=== PATIENT | female | born 1945 | race Two or more races ===

== ENCOUNTER 2017-11-11 05:03 | Inpatient (IN) | payer MEDICARE, MEDICAID ==
[~2017-11-11] VITALS: Ht 160 cm; Wt 95.3 kg
--- NOTE | 2017-11-11 05:00 | NUR ---
ms/rn notes receive patient direct admit patient of Dr. taylor for procedure for total left knee arthroplasty, with chief complain of chronic pain on bilateral leg, patient alert, oriented x3, able to verbalize needs, ambulatory, complain of pain, belongings received by , consent signed, and iv inserted on left hand gauge 20,, vital signs checked, endorse to leticia and last picker in bed for 7am surgery.
[2017-11-11] MEDS ORDERED: BACITRACIN 50000 UNITS/VIAL ONE (06:34)
[2017-11-11] MEDS ORDERED: KETOROLAC TROMETHAMINE INJ 30 MG/ML VIAL ONE (06:34)
[2017-11-11] MEDS ORDERED: BUPIVACAINE 0.5 % PF 150 MG/30 ML VIAL ONE (06:34)
[2017-11-11] MEDS ORDERED: ANESTHESIA TRAY IN PYXIS 1 EA TRAY MC ONE (06:34)
[2017-11-11] MEDS ORDERED: TRANEXAMIC ACID 3,000 MG in SODIUM CHLORIDE IRRIG SOLUTION 70 ML IR ONE (07:00)
[2017-11-11 07:01] LABS: BASOPHILS % (AUTO) 0.1 % (0.0-2.0); EOSINOPHILS # (AUTO) 0.1 /CMM (0.0-0.7); HEMATOCRIT 39 % (33-45); HEMOGLOBIN 12.9 g/dL (11.5-14.8); LYMPHOCYTES % (AUTO) 15.7 % (20.0-44.0); MEAN CORPUSCULAR HEMOGLOBIN 29 PG (26.0-33.0); MEAN CORPUSCULAR HGB CONC 34 g/dl (31.0-36.0); MEAN CORPUSCULAR VOLUME 87 fL (82-100); MONOCYTES # (AUTO) 0.7 /CMM (0.1-1.30); MONOCYTES % (AUTO) 5.7 % (2.0-12.0); NEUTROPHILS # (AUTO) 9.8 /CMM (1.8-8.9); NEUTROPHILS % (AUTO) 77.5 % (43.0-81.0); PLATELET COUNT (AUTO) 232 /CMM (150-450); RDW COEFFICIENT OF VARIATION 15.3 (11.5-15.0); RED BLOOD CELL COUNT(AUTO) 4.42 MIL/uL (4.0-5.2); WHITE BLOOD COUNT (AUTO) 12.7 K/uL (4.3-11.0)
[2017-11-11] MEDS ORDERED: KETAMINE HCL (500MG/10ML) 50 MG/ML VIAL ONE (07:08)
[2017-11-11] MEDS ORDERED: MIDAZOLAM HCL 2 MG/2ML VIAL ONE (07:08)
[2017-11-11] MEDS ORDERED: FENTANYL PF 100MCG/2ML AMPUL ONE (07:08)
--- NOTE | 2017-11-11 08:10 | NUR ---
RN NOTES PATIENT IN THE SURGERY AT THIS TIME.
[2017-11-11 09:07] VITALS: BP 132/72
--- NOTE | 2017-11-11 09:07 | NUR ---
RN NOTES RECEIVED PATIENT AT THIS TIME RETURNED FROM SURGERY LEFT TOTAL KNEE. GET REPORT FROM SURGERY NURSE PER MD ORDER CONTINUED MEDS, REGULAR DIET, FIRS DRESSING CHANGE ON THURSDAY BY NURSE, PT EVALUATION, HEMOGLOBIN, AND HEMATOCRIT ON 11/12/17, RESUME HOME MEDICATION, CONSULT FOR HOSPITALIZATION. ORDER TAKEN AND CARRIED OUT.PATIENT A/O X3/4, NO C/O PAIN AT THIS TIME, NO COMPLAINING OF SOB. V/S TAKEN BP-132/72, P-73, R-14, T-97.3, 02-95 ROOM AIR, PATIENT HAS A LEFT KNEE DRESSING, AND LONG BRACE ON, DVT PUMP ON BILATERAL LOWER EXTREMITIES, LUNGS ARE CLEAR DURING AUSCULTATION, HOB ELEVATED, NO ACUTE RESPIRATORY DISTRESS, RUSH CATHETER DRAIN LIGHT YELLOW OUTPUT, LEFT HAND IV ACCESS INTACT,CALL LIGHT WITHIN TO REACH, CONTINUED MONITORING.
[2017-11-11] MEDS ORDERED: ACETAMINOPHEN 325 MG TABLET PO PRN (10:30)
[2017-11-11] MEDS ORDERED: HYDROCODONE/APAP 5/325MG 1 EACH TABLET PO PRN ×2 (10:30)
[2017-11-11] MEDS ORDERED: BISACODYL SUPP (10 MG) 10 MG/SUPP.RECT SUPP.RECT RC PRN (10:30)
[2017-11-11] MEDS ORDERED: DOCUSATE SODIUM 250 MG CAPSULE PO PRN (10:30)
[2017-11-11] MEDS ORDERED: HYDROMORPHONE 1 MG/1 ML DISP.SYRIN IV PRN (10:30)
[2017-11-11] MEDS ORDERED: ZOLPIDEM TARTRATE 5 MG TABLET PO PRN (10:30)
[2017-11-11] MEDS ORDERED: SENNOSIDES 8.6 MG TABLET PO PRN (10:30)
--- NOTE | 2017-11-11 10:48 | NUR ---
RN NOTES ADMINISTERED DILAUDID 1MG/ML IV PUSH PER PATIENT REQUEST PAIN LEVEL IS 10/10 LEFT KNEE, CALL LIGHT WITHIN TO REACH, ALSO PATIENT C/O NAUSEA, HOB KEEP ELEVATED, CALL LIGHT WITHIN TO REACH, SAFETY PRECAUTION MAINTAINED ALL THE TIME.
[2017-11-11] MEDS: IV LR 1000 ML 1,000 ML IV PRN (10:59)
[2017-11-11] MEDS ORDERED: SENNOSIDES/DOCUSATE SODIUM 1 TAB TABLET PO SCH (12:30)
[2017-11-11] MEDS: POLYETHYLENE GLYCOL 3350 17 GM POWD.PACK PO SCH ×2 (12:30→22:00)
[2017-11-11] MEDS: HYDROMORPHONE HCL 2 MG TABLET PO SCH ×2 (12:30→17:19)
[2017-11-11] MEDS: ONDANSETRON HCL/PF 4 MG/2 ML VIAL IV PRN ×2 (13:04→19:19)
[2017-11-11] MEDS: HYDROMORPHONE 1 MG/1 ML DISP.SYRIN IV PRN ×2 (13:13→19:20)
[2017-11-11] MEDS ORDERED: OLME20TA21 PO (13:31)
[2017-11-11] MEDS ORDERED: OMEP20CA10 PO (13:31)
[2017-11-11] MEDS ORDERED: Statin PO (13:31)
[2017-11-11] MEDS ORDERED: GABA-534 PO (13:31)
[2017-11-11] MEDS ORDERED: NAPR500T6 PO (13:31)
--- NOTE | 2017-11-11 15:00 | NUR ---
RN NOTES PATIENT WITH THE PT, BACK TO THE BED AFTER AMBULATION, ON CPM, NO C/O PAIN AT THIS TIME, MEDICATION WERE ADMINISTERED FOR PAIN , AND NAUSEA EFFECTIVE, CALL LIGHT WITHIN TO REACH, CONTINUED MONITORING.
[2017-11-11 16:00] VITALS: BP 146/76
[2017-11-11] MEDS ORDERED: hydrALAZINE HCL 25 MG TABLET PO PRN (18:30)
--- NOTE | 2017-11-11 19:20 | NUR ---
RN NOTES ADMINISTERED ZOFRAN 4MF/ML IV PUSH FOR NAUSEA , AND DILAUDID 2 MG /ML IV PUSH PAIN 8/10 LFT KNEE. CALL LIGHT WITHIN TO REACH, FAMILY NEXT TOT THE BED. ENDORSED ONCOMING NURSE FOR KELLEN.
--- NOTE | 2017-11-11 19:35 | NUR ---
RN OPENING NOTES RECEIVED REPORT FROM DAYSHIFT RN. FOUND Pt AWAKE, RESTING IN BED, FAMILY VISITING AT BEDSIDE. NO S/S OF ACUTE DISTRESS OR SOB NOTED. Pt IS A/OX4, VERBAL, ABLE TO MAKE NEEDS KNOWN. IV ACCESS ON RHAND #22G, IVF LR @50ML/HR, INFUSING WELL. RUSH CATHETER IN PLACE. SAFETY MEASURES IN PLACE. BED LOW, LOCKED, HOB ELEVATED, SIDE RAILS UP, CALL LIGHT AND BED SIDE TABLE WITHIN REACH. WILL CONTINUE TO MONITOR Pt THROUGHOUT THE NIGHT FOR SAFETY.
[2017-11-11 20:00] VITALS: BP_SYST 124; BP_SYST 94; BP_DIAS 59; BP_DIAS 70
[2017-11-11] MEDS ORDERED: SULF1TAB48 PO (20:10)
[2017-11-11] MEDS ORDERED: PROMETHAZINE HCL 50 MG/ML AMPUL IM ONE (21:42)
[2017-11-11] MEDS ORDERED: SCOPOLAMINE HBR 1 EA PATCH.TD72 TD SCH (22:00)
[2017-11-11] MEDS ORDERED: oxyCODONE IR immediate release 5 MG PO PRN (22:00)
[2017-11-11] MEDS ORDERED: PROMETHAZINE HCL 50 MG/ML AMPUL IM PRN (22:00)
[2017-11-11] MEDS: PANTOPRAZOLE 40 MG TABLET.DR PO SCH (23:42)
[2017-11-11] MEDS: HYDROMORPHONE 1 MG/1 ML DISP.SYRIN SQ PRN (23:43)
[2017-11-12] MEDS: HYDROMORPHONE 1 MG/1 ML DISP.SYRIN SQ PRN ×5 (03:57→20:07)
--- NOTE | 2017-11-12 06:42 | NUR ---
RN CLOSING NOTES NO SIGNIFICANT CHANGES IN Pt's CONDITION DURING THE SHIFT. Pt REMAINS STABLE AT THIS TIME. NO S/S OF ACUTE DISTRESS OR SOB NOTED DURING THE NIGHT. ALL NEEDS MET AND ATTENDED TO. SAFETY MEASURES IN PLACE. WILL ENDORSE TO DAYSHIFT RN. FC OUTPUT 600CC.
--- NOTE | 2017-11-12 07:23 | NUR ---
MS/RN OPENING NOTE PATIENT IN BED IN STABLE CONDITION. A/O X 4. NO SIGNS OF ACUTE DISTRESS. NO COMPLAIN OF PAIN OR DISCOMFORT. ALL NEEDS ATTENDED TO. CALL LIGHT WITHIN REACH. WILL CONTINUE TO MONITOR TO ENSURE SAFETY.
[2017-11-12] MEDS: ONDANSETRON HCL/PF 4 MG/2 ML VIAL IV PRN ×3 (07:26→19:57)
[2017-11-12 07:33] LABS: APPEARANCE,URINE CLEAR (CLEAR); BILIRUBIN,URINE NEGATIVE (NEGATIVE); BLOOD, URINE 3+ Ery/uL (NEGATIVE); COLOR,URINE YELLOW (YELLOW); KETONES,URINE NEGATIVE (NEGATIVE); LEUKOCYTE ESTERASE ,URINE NEGATIVE (NEGATIVE); NITRITE, URINE NEGATIVE (NEGATIVE); PROTEIN,URINE 1+ mg/dl (NEGATIVE); UGLUCOSE NEGATIVE (NEGATIVE); UROBILINOGEN,URINE 0.2 EU/dL (0.2)
[2017-11-12 07:46] LABS: BASOPHILS % (AUTO) 0.1 % (0.0-2.0); EOSINOPHILS % (AUTO) 0.1 % (0.0-6.0); HEMATOCRIT 35 % (33-45); HEMOGLOBIN 11.7 g/dL (11.5-14.8); LYMPHOCYTES # (AUTO) 1.5 /CMM (0.8-4.8); MEAN CORPUSCULAR HEMOGLOBIN 29 PG (26.0-33.0); MEAN CORPUSCULAR HGB CONC 34 g/dl (31.0-36.0); MEAN CORPUSCULAR VOLUME 88 fL (82-100); MONOCYTES # (AUTO) 1.1 /CMM (0.1-1.30); MONOCYTES % (AUTO) 6.8 % (2.0-12.0); NEUTROPHILS # (AUTO) 12.9 /CMM (1.8-8.9); PLATELET COUNT (AUTO) 222 /CMM (150-450); RDW COEFFICIENT OF VARIATION 15.3 (11.5-15.0); RED BLOOD CELL COUNT(AUTO) 3.98 MIL/uL (4.0-5.2); WHITE BLOOD COUNT (AUTO) 15.5 K/uL (4.3-11.0)
[2017-11-12 08:00] VITALS: BP 112/63
[2017-11-12 08:30] LABS: CARBON DIOXIDE 28 mmol/L (21-32); CHLORIDE 102 mmol/L (98-107); CREATININE 0.9 mg/dL (0.6-1.3); GLUCOSE 106 mg/dL (74-106); MAGNESIUM 2.1 mg/dL (1.8-2.4); PHOSPHORUS 3.2 mg/dL (2.5-4.9); POTASSIUM 4.4 mmol/L (3.5-5.1); SODIUM SERUM 136 mmol/L (136-145); UREA NITROGEN, BLOOD 19 mg/dL (7-18)
[2017-11-12] MEDS: ASPIRIN 325 MG TABLET PO SCH (08:34)
[2017-11-12 09:49] LABS: BACTERIA,URINE None seen /HPF (None Seen); RBC,URINE 21-50 /HPF (0-2); SQUAMOUS EPITHELIAL CELL,UR Few /HPF (None Seen); WBC,URINE 0-2 /HPF (0-3)
--- NOTE | 2017-11-12 14:00 | NUR ---
MS/RN SEEN BY LUC BRADY PATIENT SEEN BY ALEJANDRA MOULTON, WITH NO ORDERS AT THIS TIME. PER ALEJANDRA HERNANDEZ CHANGES S/P R TKA DRESSING TOMORROW.
--- NOTE | 2017-11-12 15:40 | NUR ---
MS/RN SPOKE WITH DR SHAFFER RECEIVED UA WITH C&S RESULTS FROM PATIENT'S PRIMARY DOCTOR JESÚS GOSS'S OFFICE STATING PATIENT RESISTANT TO [facility] AND WAS ON BACTRIM DS PRESCRIBED PER PATIENT'S PRIMARY. DOCTOR EDMUND MADE AWARE WITH NEW ORDER FOR LEVAQUIN 500MG PO QD FOR PROTEUS MIRABILIS OF URINE. RESULTS PLACED IN PATIENT'S CHART.
--- NOTE | 2017-11-12 15:56 | NUR ---
MS/RN SPOKE WITH DR SHAFFER SPOKE WITH DR SHAFFER AND MADE AWARE PATIENT COMPLAIN OF ITCHING AND IS REQUESTING BENADRYL SECONDARY TO PATIENT ALLERGIC TO CODEINE AND HYDROCODONE AND CURRENTLY ON HYDROMORPHONE IV Q [address] SHAFFER NEW ORDER BENADRYL 25MG IVP Q 6H PRN.
[2017-11-12] MEDS ORDERED: SCOPOLAMINE HBR 1 EA PATCH.TD72 TD ONE (16:00)
[2017-11-12] MEDS: diphenhydrAMINE HCL 50 MG/ML VIAL IV PRN (16:44)
[2017-11-12] MEDS: LEVOFLOXACIN (500MG) 500 MG TABLET PO SCH (16:44)
[2017-11-12] MEDS: GABAPENTIN 300 MG CAPSULE PO SCH (16:50)
[2017-11-12] MEDS: IV LR 1000 ML 1,000 ML IV PRN (16:51)
--- NOTE | 2017-11-12 19:04 | NUR ---
MS/RN CLOSING NOTE PATIENT IN BED IN STABLE CONDITION. A/O X 4. NO SIGNS OF ACUTE DISTRESS. NO COMPLAIN OF PAIN OR DISCOMFORT. ALL NEEDS ATTENDED TO. CALL LIGHT WITHIN REACH. WILL ENDORSE TO NEXT SHIFT FOR CONTINUITY OF CARE.
--- NOTE | 2017-11-12 19:30 | NUR ---
MS DARRELL OPENING NOTES: RECEIVED PT IN BED AND IS COMPLAINING OF L KNEE PAIN 07/21. PT ON ROOM AIR AND TOLERATING WELL. PT HAS RUSH CATH AND IS ATTACHED TO DRAINAGE BAG WITH YELLOW URINE DRAINING. PT HAS R HAND #22G AND IS BEING INFUSED WITH LR AT 50ML/HR. CALL LIGHT WITHIN PT'S REACH. BED KEPT IN LOW, LOCKED POSITION, AND SIDE RAILS X 2UP. WILL CONTINUE TO MONITOR PT. Addendum: 11/13/17 at 0552 by МАРИНА LITTLE RN NOTED THAT PT HAS SCOPOLAMINE PATCH BEHIND RIGHT EAR FOR N/V.
[2017-11-12 20:00] VITALS: BP 112/70
--- NOTE | 2017-11-12 20:05 | NUR ---
MS RN NOTES: PT DOES NOT WANT OXY AT THIS MOMENT. SHE CHANGED HER MIND AND WANTS DILAUDID INSTEAD BECAUSE SHE CANNOT TAKE ANYTHING BY MOUTH. PT COMPLAINING OF NAUSEA. WILL HOLD ONTO OXY FOR NOW.
[2017-11-12] MEDS: PANTOPRAZOLE 40 MG TABLET.DR PO SCH (21:15)
[2017-11-12] MEDS: POLYETHYLENE GLYCOL 3350 17 GM POWD.PACK PO SCH (21:17)
--- NOTE | 2017-11-12 22:00 | NUR ---
MS RN NOTES: PT REFUSED HER MIRALAX. RISKS AND BENEFITS EXPLAINED X 3. PT STILL REFUSING HER MIRALAX.
[2017-11-13] MEDS: ONDANSETRON HCL/PF 4 MG/2 ML VIAL IV PRN ×5 (00:25→20:05)
[2017-11-13] MEDS: HYDROMORPHONE 1 MG/1 ML DISP.SYRIN SQ PRN ×3 (01:50→09:52)
--- NOTE | 2017-11-13 01:54 | NUR ---
MS RN NOTES: PT COMPLAINING OF 8/10 L KNEE PAIN. PT REQUESTING FOR PAIN MED. BP WAS 105/70 HR 114. PT WAS ADMINISTERED DILUADID 1MG. WILL CONTINUE TO MONITOR PT.
--- NOTE | 2017-11-13 05:48 | NUR ---
MS RN NOTES: GAVE PT INCENTIVE SPIROMETER. ENCOURAGED PT TO USE INCENTIVE SPIROMETER WHILE AWAKE.
--- NOTE | 2017-11-13 06:47 | NUR ---
MS RN NOTES: PT COMPLAINING OF 9/10 L KNEE PAIN. PT WAS ADMINISTERED DILAUDID AND ZOFRAN. BP WAS 121/70 HR 101. WILL CONTINUE TO MONITOR PT.
--- NOTE | 2017-11-13 07:10 | NUR ---
MS RN OPENING NOTES RECEIVED PT FROM NIGHTSHIFT NURSE IN STABLE CONDITION. PT IS A/O X4. NO SOB OR SIGNS OF DISTRESS NOTED. BREATHING IS EVEN AND UNLABORED. PT DENIES ANY PAIN AT THIS TIME. RUSH CATHETER NOTED TO BE DRAINING CLEAR YELLOW URINE. SURGICAL SITE NOTED, DRESSING NOTED TO BE CLEAN, DRY, AND INTACT. IV NOTED TO RIGHT HAND 22G INFUSING LR @ 50ML/HR. PT IS TOLERATING INFUSION WELL. NO REDNESS OR SIGNS OF DISTRESS NOTED. BED IN LOW LOCKED POSITION, SIDE RAILS UP X2, CALL LIGHT WITHIN REACH. WILL CONTINUE TO MONITOR
[2017-11-13] MEDS: diphenhydrAMINE HCL 50 MG/ML VIAL IV PRN ×2 (07:27→22:22)
--- NOTE | 2017-11-13 07:30 | NUR ---
MS RN CLOSING NOTES: ALL NEEDS WERE ATTENDED AND ANTICIPATED FOR. PT NOT COMPLAINING OF PAIN AT THIS TIME BUT OF ITCHINESS. PT WAS OFFERED BENADRYL AND WAS ADMINISTERED BENADRYL. PT HAS RUSH CATH AND IS ATTACHED TO DRAINAGE BAG WITH YELLOW URINE DRAINING. OUTPUT WAS 1250ML. PT HAS R HAND #22G AND IS BEING INFUSED WITH LR AT 50ML/HR. CALL LIGHT WITHIN PT'S REACH. BED KEPT IN LOW, LOCKED POSITION, AND SIDE RAILS X 2UP. ENDORSED TO AM NURSE FOR KELLEN.
[2017-11-13 08:00] VITALS: BP 107/66
[2017-11-13] MEDS ORDERED: OLMESARTAN MEDOXOMIL 10 MG PO SCH (09:00)
[2017-11-13] MEDS: GABAPENTIN 300 MG CAPSULE PO SCH (09:51)
[2017-11-13] MEDS: ASPIRIN 325 MG TABLET PO SCH (09:51)
[2017-11-13] MEDS ORDERED: LEVO500T75 PO (10:30)
[2017-11-13] MEDS: HYDROMORPHONE INJ 0.5 MG/0.5 ML SYRINGE SQ PRN ×3 (13:17→20:03)
[2017-11-13 16:00] VITALS: BP 105/66
[2017-11-13] MEDS: LEVOFLOXACIN (500MG) 500 MG TABLET PO SCH (16:10)
--- NOTE | 2017-11-13 18:46 | NUR ---
MS RN CLOSING NOTES PT REMAINS IN STABLE CONDITION. ALL NEEDS MET DURING SHIFT AND ORDERS CARRIED OUT ACCORDINGLY. ALL DUE MEDS GIVEN. DRESSING CHANGE COMPLETED ORDERED. WOUND AND SKIN CARE RENDERED, RUSH CATHETER REMOVED PER MD ORDER AND PER PROTOCOL. PT ABLE TO VOID POST RUSH REMOVAL. IV REMAINS PATENT AND INTACT. ALL SAFETY MEASURES REMAIN IN PLACE. WILL ENDORSE TO NIGHTSHIFT NURSE FOR KELLEN
--- NOTE | 2017-11-13 19:15 | NUR ---
MS RN OPENING NOTES: RECEIVED PT IN BED AND IS ASLEEP IN HIGH ROBERTSON'S POSITION. CALL LIGHT WITHIN PT'S REACH. BED KEPT IN LOW, LOCKED POSITION, AND SIDE RAILS X 2 UP. PT HAS R HAND 22G AND IS PATENT AND INTACT. CURRENTLY S/L. WILL CONTINUE TO MONITOR PT.
[2017-11-13 20:00] VITALS: BP 112/60
--- NOTE | 2017-11-13 20:04 | NUR ---
MS RN NOTES: PT COMPLAINING OF 8/10 L KNEE PAIN. WILL ADMINISTER DILAUDID. WILL CONTINUE TO MONITOR PT.
[2017-11-13] MEDS: PANTOPRAZOLE 40 MG TABLET.DR PO SCH (22:22)
[2017-11-13] MEDS: POLYETHYLENE GLYCOL 3350 17 GM POWD.PACK PO SCH (22:22)
[2017-11-14] MEDS: ONDANSETRON HCL/PF 4 MG/2 ML VIAL IV PRN ×2 (00:31→04:32)
[2017-11-14] MEDS: HYDROMORPHONE INJ 0.5 MG/0.5 ML SYRINGE SQ PRN ×3 (00:31→09:38)
--- NOTE | 2017-11-14 04:36 | NUR ---
MS RN NOTES: PT COMPLAINING OF NAUSEA. PT WAS ADMINISTERED ZOFRAN.
[2017-11-14 05:09] VITALS: BP 116/70
--- NOTE | 2017-11-14 07:34 | NUR ---
MS RN CLOSING NOTES: ALL NEEDS WERE ATTENDED AND ANTICIPATED FOR. PT ON 4LPM VIA NC AND IS TOLERATING WELL. PT A/OX4. CALL LIGHT WITHIN PT'S REACH. INSTRUCTED PT TO USE CALL LIGHT FOR ASSISTANCE. BED KEPT IN LOW, LOCKED POSITION, AND SIDE RAILS X 2 UP. PT HAS R HAND 22G AND IS PATENT AND INTACT. CURRENTLY S/L. ENDORSED TO AM NURSE FOR KELLEN.
--- NOTE | 2017-11-14 07:40 | NUR ---
RN OPENING NOTES RECEIVED PT. PT IS STABLE AND SLEEPING IN BED. PT IS A/OX4. NO S/S OF SOB OR RESP DISTRESS. PT HAS C/O PAIN AT LEFT KNEE, WILL ADDRESS PHARMACOLOGICALLY. PT IS SCHEDULED TO BE D/C TODAY TO [facility]. IV ACCESS LOCATED ON RIGHT HAND 20G CURRENTLY SL. SAFETY MEASURES IN PLACE, CALL LIGHT WITHIN REACH. WILL CONTINUE TO MONITOR.
[2017-11-14 08:00] VITALS: BP 98/60
[2017-11-14] MEDS: GABAPENTIN 300 MG CAPSULE PO SCH (08:16)
[2017-11-14] MEDS: ASPIRIN 325 MG TABLET PO SCH (08:16)
[2017-11-14] MEDS ORDERED: ASPI-992 PO (11:50)
[2017-11-14] MEDS ORDERED: PNEUMOCOCCAL 23-VAL P-SAC VAC 0.5 ML VIAL SQ ONE (13:30)
--- NOTE | 2017-11-14 14:30 | NUR ---
DISCHARGE NOTE PT DISCHARGED TO [facility]. VSS, NO S/S OF RESP DISTRESS, NO C/O PAIN. REPORT GIVEN TO KIRAN OF [facility]. DISCHARGE EDUCATION PROVIDED TO PT, PT VERBALIZE UNDERSTANDING OF NEW PRESCRIPTIONS AND DISCHARGE INSTRUCTIONS. IV ACCESS AND ID REMOVED. DISCHARGE INSTRUCTIONS AND BELONGINGS SHEET SIGNED, COPIED AND PLACED IN CHART. DISCHARGE SUMMARY AND EXITCARE PROVIDED TO PT. PT LEFT HOSPITAL IN AMBULANCE WITH PARAMEDICS.
== END 2017-11-14 14:20 | DRG 470 ==
LOC: DS 05:03 → MED 05:05
PROVIDERS: ADMIT Specialist; ATTEND Specialist
PROC: 0SRD0J9 Replacement of Left Knee Joint with Synthetic Substitute, Cemented, Open Approach (ICD-10-PCS; principal; 2017-11-11 07:00)
DX: M17.12 Unilateral primary osteoarthritis, left knee (principal); E46 Unspecified protein-calorie malnutrition; E78.5 Hyperlipidemia, unspecified; I10 Essential (primary) hypertension; Z68.37 Body mass index [BMI] 37.0-37.9, adult; Z87.440 Personal history of urinary (tract) infections; Z88.5 Allergy status to narcotic agent; Z83.3 Family history of diabetes mellitus; Z82.5 Family history of asthma and other chronic lower respiratory diseases; K21.9 Gastro-esophageal reflux disease without esophagitis; E66.01 Morbid (severe) obesity due to excess calories; M79.7 Fibromyalgia
CPT/HCPCS: 36415; 80048-TC; 81000-TC; 83735-TC; 84100-TC; 85025-TC; 86706; 86803; 86850-TC; 86921-TC; 87081-TC; 87086-TC; 88305-TC; 88311-TC; 90732; 97110-TC; 97116-TC; 97530-TC; 97760-TC; A4217; A6253; A6402; J1170; J1200; J1885; J2250; J2405; J2550; J3010; J3490; J7120; L1830; Z7610

== ENCOUNTER 2019-11-30 15:38 | Emergency (ER) | payer MEDICARE, OTHER ==
[~2019-11-30] VITALS: Ht 157.5 cm; Wt 98.9 kg
[~2019-11-30 15:38] MED LIST: ASPI-992 PO; GABA-534 PO; LEVO500T75 PO; NAPR500T6 PO; OLME20TA13 PO; OMEP20CA15 PO; Statin PO
[2019-11-30] MEDS ORDERED: IBUPROFEN 400 MG TABLET ONE (16:26)
[2019-11-30] MEDS ORDERED: IBUPROFEN 400 MG TABLET PO ONE (16:30)
--- NOTE | 2019-11-30 16:35 | NUR ---
RADIATION ONCOLOGY MANAGER AT BEDSIDE FOR X-RAY
--- NOTE | 2019-11-30 16:53 | NUR ---
JOSE WRAP PROVIDED. Patient discharged to home in stable condition. Written and verbal after care instructions given. Patient verbalizes understanding of instruction.
[2019-11-30 16:54] VITALS: BP 121/76
== END 2019-11-30 16:55 | disposition home or self-care (01) ==
LOC: ER 15:42
DX: S80.01XA Contusion of right knee, initial encounter (principal); S30.0XXA Contusion of lower back and pelvis, initial encounter; I10 Essential (primary) hypertension; Z88.8 Allergy status to other drugs, medicaments and biological substances; Z88.5 Allergy status to narcotic agent; Z79.82 Long term (current) use of aspirin; Z79.899 Other long term (current) drug therapy; W19.XXXA Unspecified fall, initial encounter; Y93.89 Activity, other specified; Y92.89 Other specified places as the place of occurrence of the external cause; Y99.8 Other external cause status
CPT/HCPCS: 72100-TC; 73564-TC

== ENCOUNTER 2019-12-19 16:43 | Emergency (ER) | payer MEDICARE, OTHER ==
[~2019-12-19] VITALS: Ht 160 cm; Wt 122.5 kg
--- NOTE | 2019-12-19 17:00 | NUR ---
PT BIB SELF REFERRED BY PRIMARY DOCTOR C/O RIGHT KNEE PAIN AND LOWER LEG SWELLING X10 DAYS. RESP EVEN UNLABORED. SKIN WARM DRY. NAD NOTED. SENT FOR R/O DVT.
[2019-12-19 17:10] LABS: BASOPHILS # (AUTO) 0.1 /CMM (0.0-0.2); BASOPHILS % (AUTO) 1.8 % (0.0-2.0); EOSINOPHILS % (AUTO) 2.3 % (0.0-6.0); HEMATOCRIT 42 % (33-45); HEMOGLOBIN 13.6 g/dL (11.5-14.8); LYMPHOCYTES # (AUTO) 1.6 /CMM (0.8-4.8); LYMPHOCYTES % (AUTO) 19.5 % (20.0-44.0); MEAN CORPUSCULAR HGB CONC 32 g/dl (31.0-36.0); MEAN CORPUSCULAR VOLUME 89 fL (82-100); MONOCYTES # (AUTO) 0.4 /CMM (0.1-1.30); MONOCYTES % (AUTO) 5.4 % (2.0-12.0); NEUTROPHILS # (AUTO) 5.8 /CMM (1.8-8.9); PLATELET COUNT (AUTO) 274 /CMM (150-450); RED BLOOD CELL COUNT(AUTO) 4.73 MIL/uL (4.0-5.2); WHITE BLOOD COUNT (AUTO) 8.1 K/uL (4.3-11.0)
[2019-12-19 17:23] LABS: ALANINE AMINOTRANSFERASE 20 U/L (12-78); ALBUMIN 3.9 g/dL (3.4-5.0); ALKALINE PHOSPHATASE 81 U/L (46-116); ASPARTATE AMINOTRANSFERASE 18 U/L (15-37); BILIRUBIN,TOTAL 0.3 mg/dL (0.2-1.0); CALCIUM, SERUM 9.7 mg/dL (8.5-10.1); CARBON DIOXIDE 29 mmol/L (21-32); CHLORIDE 103 mmol/L (98-107); CREATININE 0.9 mg/dL (0.6-1.3); GLUCOSE 111 mg/dL (74-106); POTASSIUM 4.3 mmol/L (3.5-5.1); SODIUM SERUM 141 mmol/L (136-145); UREA NITROGEN, BLOOD 15 mg/dL (7-18)
--- NOTE | 2019-12-19 17:41 | NUR ---
US TECH AT BEDSIDE
[2019-12-19 18:09] VITALS: BP 118/76
--- NOTE | 2019-12-19 18:09 | NUR ---
Patient discharged to home in stable condition. Written and verbal after care instructions given. Patient verbalizes understanding of instruction.
== END 2019-12-19 18:09 | disposition home or self-care (01) ==
LOC: ER 16:47
DX: S83.8X1A Sprain of other specified parts of right knee, initial encounter (principal); I10 Essential (primary) hypertension; E11.9 Type 2 diabetes mellitus without complications; Z88.5 Allergy status to narcotic agent; Z79.82 Long term (current) use of aspirin; Z79.899 Other long term (current) drug therapy; W01.0XXA Fall on same level from slipping, tripping and stumbling without subsequent striking against object, initial encounter; Y93.89 Activity, other specified; Y92.89 Other specified places as the place of occurrence of the external cause; Y99.8 Other external cause status
CPT/HCPCS: 36415; 80053-TC; 85025-TC; 85610-TC; 93971-TC

== ENCOUNTER 2020-03-29 11:00 | Outpatient (CLI) | payer MEDICARE, MEDICAID | END 2020-03-29 23:59 | disposition home or self-care (01) | LOC: WOU 11:00 | PROVIDERS: ATTEND Surgery | DX: T85.43XA Leakage of breast prosthesis and implant, initial encounter (principal); N63.14 Unspecified lump in the right breast, lower inner quadrant; N64.4 Mastodynia; Z98.82 Breast implant status; I10 Essential (primary) hypertension; Z96.652 Presence of left artificial knee joint | CPT/HCPCS: G0463 ==